=== PATIENT | male | born 1970 | race Caucasian/White ===

== ENCOUNTER 2020-02-01 04:21 | Emergency (ER) | payer OTHER ==
[~2020-02-01] VITALS: Ht 200.7 cm; Wt 81.6 kg
[2020-02-01 04:28] VITALS: Ht 200.7 cm; Wt 81.6 kg
[2020-02-01 04:51] VITALS: BP 132/89
== END 2020-02-01 04:51 | disposition other institution (70) ==
LOC: ED 04:21
DX: Z02.89 Encounter for other administrative examinations (principal)